=== PATIENT | male | born 1980 | race Caucasian/White ===

== ENCOUNTER 2023-08-26 18:39 | Emergency (ER) | payer OTHER, SELFPAY ==
[2023-08-26 19:18] VITALS: BP 153/92; PULSE 71; RESP 20; TEMP 36.5; O2SAT 96; BMI 36.3
--- NOTE | 2023-08-26 20:17 | ED_ITS ---
HPI - Back Pain/Injury General Time Seen by Provider: 20:17 Date Seen: 08/26/23 Chief Complaint: Back Injury/Pain Stated Complaint: Threw out back Time Seen by Provider: 08/26/23 20:17 Source: patient Mode of arrival: ambulatory Limitations: no limitations History of Present Illness HPI Narrative: Dominick is a very pleasant 43-year-old gentleman with a history of scoliosis long hand standing history of intermittent back pain who comes to the emergency room with acute back pain. Patient notes the last 3 days he has been experiencing soreness in the back and today while lifting a heavy battery he felt a sharp pain. He does have discomfort in the low back but the majority of his pain is in the mid back with radiation over the right flank. Patient states that when this happened he could not stand up straight. States the pain is radiating into his testicles a bit but denies numbness or tingling. Notes that he has in the past had pain radiating down his left leg and notes some discomfort but states that is mostly because he has been leaning to his left. He states sitting is better than lying down and leaning to his left is the best position. Any move ment greatly increases his discomfort. He notes that it seems to be harder to empty his bladder lately. He has also noticed night sweats for about 1 month but has not had any weight loss. He and his significant other recently moved from [facility]. Previous physician was Dr. Hemant Smith. Patient did have previous MRIs but no surgeries in the past for his low back. States for many years he was on medications. He was actually and tramadol for 1 year until 4-5 years ago he decided to quit all of his medications and try to seek janitor caretaker. He was also muscle relaxers at that time. No recent narcotic prescriptions. Has not taken any other medications today Related Data Home Medications Medication Instructions Recorded Confirmed No Known Home Medications 08/26/23 08/26/23 Allergies Allergy/AdvReac Type Severity Reaction Status Date / Time No Known Drug Allergies Allergy Verified 08/26/23 22:08 Review of Systems Status of ROS: Reports: 10 or more systems reviewed and unremarkable except as noted in History and below Const: Reports: night sweats; Denies: fever, chills or change in weight Eyes: Denies: change in vision ENMT: Denies: neck pain Cardio: Denies: chest pain or shortness of breath with exertion Resp: Denies: shortness of breath or cough GI: Denies: abdominal pain or diarrhea : Denies: painful urination Musculo: Reports: back pain; Denies: neck pain or extremity pain Exam Narrative: Exam Narrative: Patient is alert and oriented. Very pleasant gentleman and significant other seems very loving and supportive. External ears eyes nose clear. Heart he is sitting on the cot in exam room 7. He is leaning to his left. His Peter off the floor. Heart with regular rate and rhythm and lungs are clear in all lung cazares. Point tenderness over approximately T7-8 area with tenderness noted on the right as well. Minimal discomfort with palpation over the lumbar area and sacral spine. Lower extremities are with full motor with hip flexion knee extension and flexion ankle and great toe extension flexion. DTRs are 2+ bilaterally. Sensation is fully intact Const: Vital Signs, click to edit/add: Vital Signs - 24 hr 08/26/23 19:18 Temperature 97.7 F Pulse Rate [Right Pulse Oximeter] 71 Respiratory Rate 20 Blood Pressure [Ri ght Upper Arm] 153/92 H Pulse Oximetry 96 Oxygen Delivery Me thod Room Air Documenting provider has reviewed patient's vital signs: yes Course Course ED Course: Differential diagnosis includes but is not limited to musculoskeletal pain, back spasm, compression fracture, disc injury, kidney stone with ureteral colic, other pathological mass. At this time will place IV and give Toradol and Ativan for treatment of discomfort. Will start with chest x-ray and thoracolumbar x- rays but will plan on CT with worries regarding the night sweats that have been occurring for 1 month. Will also check urinalysis, CBC, sed rate, CRP and comprehensive panel. Patient and his significant other agreed with this plan. Reevaluation(s) Reevaluation #1: Patient did not have significant pain relief with Toradol and Ativan. However, he was able to ambulate to and from Radiology and I observe him. He is moving slowly but has full strength. Gave dose of morphine 4 mg and Zofran 4 mg. Reevaluation #2: Patient has reassuring laboratory values as well as CTs. He continues to complain of pain will give Dilaudid 0.25 mg prior to discharge home. Vital Signs Vital signs: Initial Vital Signs Temperature 97.7 F 08/26/23 19:18 Temperature Source Temporal Artery Scan 08/26/23 19:18 Pulse Rate 71 08/26/23 19:18 Pulse Rhythm Regular 08/26/23 19:18 Respiratory Rate 20 08/26/23 19:18 Blood Pressure 153/92 H 08/26/23 19:18 Blood Pressure Mean 112 H 08/26/23 19:18 Blood Pressure Position Sitting 08/26/23 19:18 Pulse Oximetry 96 08/26/23 19:18 Oxygen Delivery Method Room Air 08/26/23 19:18 Vital Signs Temperature 97.7 F 08/26/23 19:18 Pulse Rate 71 08/26/23 19:18 Respiratory Rate 20 08/26/23 19:18 Blood Pressure 153/92 H 08/26/23 19:18 Pulse Oximetry 96 08/26/23 19:18 Oxygen Delivery Method Room Air 08/26/23 19:18 Temperature 97.7 F 08/26/23 19:18 Pulse Rate 71 08/26/23 19:18 Respiratory Rate 20 08/26/23 19:18 Blood Pressure 153/92 H 08/26/23 19:18 Pulse Oximetry 96 08/26/23 19:18 Oxygen Delivery Method Room Air 08/26/23 19:18 Medications Administered Medications: Discontinued Medications Generic Name Dose Route Start Last Admin Trade Name Freq PRN Reason Stop Dose Admin Sodium Chloride 1,000 mls @ 1,000 mls/hr 08/26/23 20:28 08/26/23 22:52 0.9 % Sodium Chloride 1000 Ml IV 08/26/23 21:27 Infused .Q1H SUDHAKAR Infusion Ketorolac Tromethamine 15 mg 08/26/23 20:27 08/26/23 21:14 Ketorolac 15 Mg/Ml Inj IVP 08/26/23 20:28 15 mg ONCE ONE Administration Lorazepam 0.5 mg 08/26/23 20:28 08/26/23 21:14 Lorazepam 2 Mg/Ml Inj IVP 08/26/23 20:29 0.5 mg ONCE ONE Administration Morphine Sulfate 4 mg 08/26/23 21:54 08/26/23 22:08 Morphine 4 Mg/Ml Inj IVP 08/26/23 21:55 4 mg ONCE ONE Administration Ondansetron HCl 4 mg 08/26/23 21:54 08/26/23 22:08 Ondansetron 2 Mg/Ml Inj IVP 08/26/23 21:55 4 mg ONCE ONE Administration MDM - Back Pain/Injury MDM Narrative Medical decision making narrative: 1. Thoracic back pain-patient noted to have no evidence of compression fracture or lesion on CT. Fortunately laboratory values also reassuring. This appears to be musculoskeletal issue with muscular spasm in the thoracic spine. Neuro exam is without any acute focal findings. Recommend icing to this area as well as follow-up with primary MD or establishment with a new physician. This appears to be acute on chronic issue. At this time, check the [employer] confirms patient statement that he is not use pain medications for quite some time. At this time will give him Vicodin 5/325 for nighttime use to help him sleep. Did state that this would likely cause constipation in to ensure that he starts on a stool softener. Also cautioned against right driving or any other recreation that would place him at risk if he was sedated. He does describe spasm and I have also given him of muscle relaxer but I have asked him not to use in conjunction with the [place]. During the day he may use ibuprofen or Tylenol for discomfort. Flexeril 10 mg 1 tab p.o. t.i.d. p.r.n. may be used. Again, this is a sedating medication and he should not drive with this medication. He will need to follow up as previously noted. No evidence of kidney obstruction, unusual intra-abdominal bleed, kidney stone on CT. Did speak to patient about the inability for us to do an MRI tonight but he may need 1 in the future. Also reexamine patient to ensure there is no evidence of lesions indicating a shingles infection. 2. Night sweats-there is no evidence of lesion and labs are reassuring. Follow- up with primary MD. 3. Disposition-home at this time. Prior to discharge Dilaudid 0.25 mg IV is given. Patient is ambulating slowly but without significant difficulty. Return to the emergency room as needed. Did discuss red flag symptoms such as loss of bowel or bladder control numbness of the for perineal area, inability to ambulate or high fever. Patient should return should he experience any of these. Lab Data Attestation: I reviewed the patient's lab results. Labs: Lab Results 08/26/23 08/26/23 Range/Units 20:29 21:05 WBC 6.77 (4.50-11.00) K/uL RBC 5.04 (4.30-5.90) m/uL Hgb 15.7 (13.5-17.5) gm/dL Hct 46.1 (37.0-53.0) % MCV 92 (80-100) fL MCH 31 (26-34) pg MCHC 34 (32-36) gm/dL RDW Coeff of Donn 12.4 (11.5-15.5) % Plt Count 253 (140-440) K/uL Neut % (Auto) 56.9 (42.0-72.0) % Lymph % (Auto) 32.8 (20-44) % [place] % (Auto) 8.7 (0.0-11.0) % Eos % (Auto) 1.0 (0.0-7.0) % Baso % (Auto) 0.6 (0.0-3.0) % Neut # (Auto) 3.85 (1.7-7.0) K/uL Lymph # (Auto) 2.22 (0.90-2.90) K/uL [place] # (Auto) 0.60 (0.00-0.90) K/UL Eos # (Auto) 0.07 (0.00-0.50) K/uL Baso # (Auto) 0.04 (0.00-0.30) K/uL Abs Immat Gran (auto) 0.00 (0.00-0.30) K/uL Imm/Tot Granulo (auto) 0.0 % ESR 6 (2-15) mm/hr Sodium 141 (135-149) mmol/L Potassium 3.8 (3.6-5.1) mmol/L Chloride 106 (96-114) mmol/L Carbon Dioxide 25 (20-32) mmol/L Anion Gap 10 (7-15) mEq/L BUN 12 (5-24) mg/dL Creatinine 0.9 (0.5-1.5) mg/dL Estimated Creat Clear 84.30 Estimated GFR 108 ml/min Glucose 77 (60-115) mg/dL Calcium 9.3 (8.4-10.6) mg/dL Total Bilirubin 0.8 (0.1-1.5) mg/dL AST 34 (12-35) U/L ALT 34 (4-50) U/L Alkaline Phosphatase 61 (40-150) U/L C-Reactive Protein < 0.5 L (0.5-1.0) mg/dL Total Protein 8.5 H (6.0-8.3) g/dL Albumin 5.0 (3.3-5.0) g/dL Urine Color Yellow (Yellow) Urine Appearance Clear (Clear) Urine pH 5.5 (5.0-8.5) Ur Specific [place] <= 1.005 (1.000-1.030) Urine Protein Negative (Negative) Urine Glucose (UA) Negative (Negative) Urine Ketones Negative (Negative) Urine Blood Negative (Negative) Urine Nitrite Negative (Negative) Urine Bilirubin Negative (Negative) Urine Urobilinogen 0.2 (0.2-1.0) Ur Leukocyte Esterase Negative (Negative) Urine RBC 0-2 (0-2) Urine WBC 0-2 (0-5) Ur Squamous Epith Cells None (None-Few) Urine Bacteria None (None) Imaging Data Thoracolumbar x-ray: Attestation: I have reviewed the pertinent imaging results. My impression: Questionable T8 or 9 compression. Radiologist's impression: Hmaf-jl-kuiuvqrq exaggerated thoracic kyphosis. Mild to moderate rightward thoracic curvature. Mild chronic T6-T9 vertebral body anterior wedging. No acute fracture or spondylolisthesis. Mild multilevel facet arthropathy. Prominent anterior osteophytes at T9-10. Dorsal epidural lipomatosis. No high-grade spinal canal stenosis. Low-grade neural foraminal narrowing at multiple levels. No concerning opacities in the visualized lungs. IMPRESSION: 1. No acute fracture. 2. Multilevel thoracic spondylosis without high-grade spinal canal or neural foraminal stenosis. 3. Afvo-ok-xffijhvxfs exaggerated thoracic kyphosis and pows-rk-tjeomxbc rightward thoracic curvature. Chest x-ray: Attestation: I have reviewed the pertinent imaging results. My impression: No acute finding Radiologist's impression: Cardiovascular and mediastinum: Heart size and vasculature are normal in caliber and appearance. Lungs and pleural spaces: Lungs are clear. No sign of infiltrate or mass. No sign of pleural effusion. No pneumothorax. Bones and soft tissues: No significant findings. IMPRESSION: No acute cardiopulmonary abnormality. Abdominal CT: Attestation: I have reviewed the pertinent imaging results. My impression: I do not note any acute findings Radiologist's impression: Liver: Normal in size and attenuation. Gallbladder and bile ducts: No stones or inflammation. No biliary ductal dilatation. Spleen: Normal in size. Few calcified granulomas. Adrenal glands: Normal in size. No nodules. Pancreas: Unremarkable. No mass or inflammation. Kidneys: Normal in size. No stones or hydronephrosis. GI tract: Normal in caliber. No evidence of obstruction. Normal appendix. Lymph nodes: No lymphadenopathy. Vasculature: Abdominal aorta is normal in caliber. Abdominal wall/Omentum/Peritoneum: Small fat containing umbilical hernia. No free air or significant free fluid. Pelvis: Unremarkable. Bones: Unremarkable for age. IMPRESSION: No acute abdominal or pelvic abnormality on this noncontrast examination. Thoracic CT: Attestation: I have reviewed the pertinent imaging results. Radiologist's impression: Koxl-ib-pdslmqxw exaggerated thoracic kyphosis. Mild to moderate rightward thoracic curvature. Mild chronic T6-T9 vertebral body anterior wedging. No acute fracture or spondylolisthesis. Mild multilevel facet arthropathy. Prominent anterior osteophytes at T9-10. Dorsal epidural lipomatosis. No high-grade spinal canal stenosis. Low-grade neural foraminal narrowing at multiple levels. No concerning opacities in the visualized lungs. IMPRESSION: 1. No acute fracture. 2. Multilevel thoracic spondylosis without high-grade spinal canal or neural foraminal stenosis. 3. Kyuz-ir-elchsnzxki exaggerated thoracic kyphosis and syvr-dy-zbutauam rightward thoracic curvature. Discharge Plan Discharge Clinical Impression: Back pain, thoracic Qualifiers: Chronicity: acute Back pain laterality: right Qualified Code(s): M54.6 - Pain in thoracic spine Patient Disposition: Home, Self-Care Condition: Improved Additional Instructions: Suggest icing of the area of discomfort 3 times daily 20 minutes at a time. Suggest ibuprofen or for daytime pain control. You may use muscle relaxant if needed. At night you may use [place] also known as Vicodin or hydrocodone as needed. Take stool softener if using this medication as it does cause constipation. Both a muscle relaxant and pain medication should not be used if your going to be driving. Both may cause sedation. Do not take them together. Follow-up with your primary MD or establish with another physician here in town. You may need to seek specialty care again. Prescriptions: No Action No Known Home Medications Follow Up/Referrals: Provider,Not a Local [Primary Care Provider] - Stand Alone Forms: LastRoom Info Instructions
--- NOTE | 2023-08-26 20:30 | XR_ITS ---
Patient: NICOL DUFFY Facility:?[facility] Patient ID:?[id number] Site Patient ID:?[id number] Site :?1980 Study:?XRay-Chest 2V-08/26/2023 9:07:50 PM Ordering Physician:LIZ Final Report: INDICATION: Night sweats. TECHNIQUE: Chest 2 views. COMPARISON: None. FINDINGS: Cardiovascular and mediastinum: Heart size and vasculature are normal in caliber and appearance. Lungs and pleural spaces: Lungs are clear. No sign of infiltrate or mass. No sign of pleural effusion. No pneumothorax. Bones and soft tissues: No significant findings. IMPRESSION: No acute cardiopulmonary abnormality. Dictated by Porfirio Henderson MD @ 08/26/2023 9:12:27 PM Signed by:?Porfirio Henderson MD @08/26/2023 9:12:27 PM (Electronic Signature
--- NOTE | 2023-08-26 20:30 | XR_ITS ---
Patient: NICOL DUFFY Facility:?[facility] Patient ID:?[id number] Site Patient ID:?[id number] Site :?1980 Study:?XRay-Spine THORACOLUMAR JUNCTION 2V-08/26/2023 9:08:59 PM Ordering Physician:LIZ Final Report: INDICATION: Back pain. TECHNIQUE: Thoracolumbar spine 2 views. COMPARISON: None. FINDINGS: Bones: Alignment is normal. Vertebral body heights are maintained. No acute displaced fracture. Joints: Disc spaces and facets are unremarkable. Soft tissues: Unremarkable. Dictated by Porfirio Henderson MD @ 08/26/2023 9:13:52 PM Signed by:?Porfirio Henderson MD @08/26/2023 9:13:52 PM (Electronic Signature)
[2023-08-26 20:41] LABS: Appearance Urine Clear (Clear); Bilirubin Urine Negative (Negative); Blood Urine Negative (Negative); Color Urine Yellow (Yellow); Glucose Urine Negative (Negative); Ketones Urine Negative (Negative); Leukocyte Esterase Urine Negative (Negative); Nitrite Urine Negative (Negative); Protein Urine Negative (Negative); Specific Gravity Urine <= 1.005 (1.000-1.030); Urobilinogen Urine 0.2 (0.2-1.0); pH Urine 5.5 (5.0-8.5)
[2023-08-26 20:52] LABS: RBC Urine 0-2 (0-2); WBC Urine 0-2 (0-5)
--- NOTE | 2023-08-26 21:05 | CT_ITS ---
Patient: NICOL DUFFY Facility:?[facility] Patient ID:?[id number] Site Patient ID:?[id number] Site :?1980 Study:?CT-Spine Thoracic WO-08/26/2023 9:37:34 PM Ordering Physician:?Avinash Parker Final Report: INDICATION Flank pain. T7-8 pain. TECHNIQUE: Noncontrast CT images of the thoracic spine. COMPARISON: None. FINDINGS: Emnz-he-fjkjjlca exaggerated thoracic kyphosis. Mild to moderate rightward thoracic curvature. Mild chronic T6-T9 vertebral body anterior wedging. No acute fracture or spondylolisthesis. Mild multilevel facet arthropathy. Prominent anterior osteophytes at T9-10. Dorsal epidural lipomatosis. No high-grade spinal canal stenosis. Low-grade neural foraminal narrowing at multiple levels. No concerning opacities in the visualized lungs. IMPRESSION: 1. No acute fracture. 2. Multilevel thoracic spondylosis without high-grade spinal canal or neural foraminal stenosis. 3. Byrt-xz-xtbgichocm exaggerated thoracic kyphosis and xdtq-ru-wgyfkjfy rightward thoracic curvature. Please note that all CT scans at this facility use dose modulation, iterative reconstruction, and/or weight-based dosing when appropriate to reduce radiation dose to as low as reasonably achievable. Dictated by Yogi Meadows MD @ 08/26/2023 9:51:47 PM Signed by:?Yogi Meadows MD @08/26/2023 9:51:47 PM (Electronic Signature)
--- NOTE | 2023-08-26 21:10 | CT_ITS ---
Patient: NICOL DUFFY Facility:?[facility] Patient ID:?[id number] Site Patient ID:?[id number] Site :?1980 Study:?CT-Abdomen/Pelvis WO-08/26/2023 9:38:44 PM Ordering Physician:?Avinash Parker Final Report: INDICATION: Right flank pain. TECHNIQUE: CT abdomen and pelvis without contrast. COMPARISON: None. FINDINGS: Lower chest: Unremarkable. Liver: Normal in size and attenuation. Gallbladder and bile ducts: No stones or inflammation. No biliary ductal dilatation. Spleen: Normal in size. Few calcified granulomas. Adrenal glands: Normal in size. No nodules. Pancreas: Unremarkable. No mass or inflammation. Kidneys: Normal in size. No stones or hydronephrosis. GI tract: Normal in caliber. No evidence of obstruction. Normal appendix. Lymph nodes: No lymphadenopathy. Vasculature: Abdominal aorta is normal in caliber. Abdominal wall/Omentum/Peritoneum: Small fat containing umbilical hernia. No free air or significant free fluid. Pelvis: Unremarkable. Bones: Unremarkable for age. IMPRESSION: No acute abdominal or pelvic abnormality on this noncontrast examination. Please note that all CT scans at this facility use dose modulation, iterative reconstruction, and/or weight-based dosing when appropriate to reduce radiation dose to as low as reasonably achievable. Dictated by Porfirio Henderson MD @ 08/26/2023 9:57:47 PM Signed by:?Porfirio Henderson MD @08/26/2023 9:57:47 PM (Electronic Signature)
[2023-08-26] MEDS: KETOROLAC 15 MG/ML inj IVP (21:14)
[2023-08-26] MEDS: 0.9 % SODIUM CHLORIDE 1000 ml 1,000 ML IV (21:14)
[2023-08-26] MEDS: LORazepam 2 MG/ML inj 0.5 MG IVP (21:14)
[2023-08-26 21:30] LABS: Basophils Absolute Auto 0.04 K/uL (0.00-0.30); Basophils Percent Auto 0.6 % (0.0-3.0); Eosinophils Absolute Auto 0.07 K/uL (0.00-0.50); Hematocrit 46.1 % (37.0-53.0); Hemoglobin* 15.7 gm/dL (13.5-17.5); Lymphocytes Absolute Auto 2.22 K/uL (0.90-2.90); Lymphocytes Percent Auto 32.8 % (20-44); Mean Corpuscular HGB Conc 34 gm/dL (32-36); Mean Corpuscular Hemoglobin 31 pg (26-34); Mean Corpuscular Volume 92 fL (80-100); Monocytes Percent Auto 8.7 % (0.0-11.0); Neutrophils Absolute Auto 3.85 K/uL (1.7-7.0); Neutrophils Percent Auto 56.9 % (42.0-72.0); Platelet Count* 253 K/uL (140-440); RDW Coefficient of Variation % 12.4 % (11.5-15.5); Red Blood Count 5.04 m/uL (4.30-5.90); White Blood Count* 6.77 K/uL (4.50-11.00)
[2023-08-26 21:41] LABS: Slide Review Reflex No
[2023-08-26 21:42] LABS: Chloride* 106 mmol/L (96-114)
[2023-08-26 21:43] LABS: Potassium* 3.8 mmol/L (3.6-5.1); Sodium* 141 mmol/L (135-149)
[2023-08-26 21:46] LABS: Alanine Aminotransferase* 34 U/L (4-50); Alkaline Phosphatase* 61 U/L (40-150); Anion Gap 10 mEq/L (7-15); Aspartate Amino Transferase* 34 U/L (12-35); Bilirubin Total* 0.8 mg/dL (0.1-1.5); Carbon Dioxide* 25 mmol/L (20-32); Creatinine* 0.9 mg/dL (0.5-1.5); Estimated Glomerular Filt Rate 108 ml/min; Total Protein* 8.5 g/dL (6.0-8.3)
[2023-08-26 21:47] LABS: Blood Urea Nitrogen* 12 mg/dL (5-24); Calcium* 9.3 mg/dL (8.4-10.6); Glucose* 77 mg/dL (60-115)
[2023-08-26 21:50] LABS: C Reactive Protein* < 0.5 mg/dL (0.5-1.0)
[2023-08-26] MEDS: MORPHINE 4 MG/ML INJ IVP (22:08)
[2023-08-26] MEDS: ONDANSETRON 2 MG/ML inj 4 MG IVP (22:08)
[2023-08-26 22:38] LABS: Erythrocyte SedimentationRate* 6 mm/hr (2-15)
[2023-08-26] MEDS: HYDROmorphone 0.5 mg/0.5 ml inj 0.25 MG IVP (22:45)
== END 2023-08-26 23:20 | disposition home or self-care (01) ==
PROVIDERS: Emergency Provider Family Medicine
DX: M54.6 Pain in thoracic spine (principal)
CPT/HCPCS: 36415; 71046; 72080; 72128; 74176; 80053; 81001; 85025; 85651; 86140; 96374; 96375; 99284; 99285; J1170; J1885; J2060; J2270; J2405; J7030

== ENCOUNTER 2025-01-19 04:35 | Emergency (ER) | payer BC, SELFPAY ==
--- OUTSIDE RECORDS SUMMARY | 2025-01-19 04:37 | XMS_ITS | Clinical Summary ---
Author Organization [facility] Address [address] [place] [id number] Care Team Providers Care Communications Equipment Installer Name Role Phone Bird Parker MD Primary Care Provider [phone] Sarah Us Unavailable Dianne Knutson MD Unavailable [phone] Henok Ames MD Unavailable [phone] Allergies Active Allergy Reactions Criticality Noted Date Comments No Known Allergies 09/10/2020 No Known Drug Allergy 02/25/2003 Immunizations Immunization Administration Dates Next Due Historical DTP/aP 12/14/1982,03/27/1980,11/06/18 80,1979 MMR (MMRII) 10/23/1991,12/04/1980 OPV, trivalent, live 12/14/1982,03/27/1980,11/06,1979 Social History Tobacco Use Types Packs/Day Years Used Date Smoking Tobacco: Former Smokeless Tobacco: Never Alcohol Use Standard Drinks/Week Comments Yes 0 (1 standard drink = 0.6 oz pur e alcohol) PHQ-2 Answer Date Recorded PHQ-2 Score 0 09/10/2020 Adolescent Education Answer Date Record ed Getting School Help Needed Not on file 01/30 Sex and Gender Information Value Date Recorded Sex Assigned at Not on file Legal Sex Male 3:13 AM HANDER IN Gender Identity Not on file Sexual Orientation Not on file Last Filed Vital Signs Vital Sign Reading Time Taken Comments Blood Pressure 118/84 02/25/2003 10:10 AM HANDER IN Pulse 62 02/25/2003 10:10 AM HANDER IN Temperature - - Respiratory Rate - - Oxygen Saturation - - Inhaled Oxygen Concentration - - Weight 73.5 kg (162 lb) 02/25/2003 10:10 AM HANDER IN Height 180.3 cm (5' 11) 02/25/2003 10:10 AM HANDER IN Body Mass Index 22.59 02/25/2003 10:10 AM HANDER IN Plan of Treatment Not on file Care Teams Communications Equipment Installer Relationship Specialty Start Date End Date Bird Parker MD [address] [place] [address] PCP - General 02/20/00 Sarah Us [address] [place] [address] [place] [address] Referring Physician Nurse Practitioner 08/25/20 Dianne Knutson MD [address] [place] [address] [place] [address] Ophthalmology 08/26/20 Henok Ames MD [address] [place] [address] Referring Physician Neurological Surgery 09/11/20
--- OUTSIDE RECORDS SUMMARY | 2025-01-19 04:37 | XMS_ITS | Clinical Summary ---
Author Organization [employer] [facility] Address [address] [place] [id number] Care Team Providers Care Booking Police Officer Name Role Phone Susan Marcos MD Primary Care Provide r Nithin Mendoza MD Unavailable Allergies No known active allergies Medications trimethoprim-polymy luis b (POLYTRIM) ophthalmic solutionIndications :Acute bacterial conjunctivitis of both eyes Place 1 Drop into both eyes every 4 hours. 10 mL 3 Active Active Problems Problem Noted Date Diagnosed Date Contact dermatitis and other eczema, due to unspecified cause 11/30/2011 Allergic rhinitis, cause unspecified 11/30/2011 Immunizations Immunization Administration Dates Next Due MMR 10/23/1991,12/04/1980 Td (Age >=7 Years) 07/29/1994 Tdap 06/21/2015 Family History Medical History Relation Name Comments Heart Disease Maternal Grandfather Stroke Paternal Grandfather Relation Name Status Comments Brother 1 Alive Brother 2 Alive Maternal Grandfather Maternal Grandmother Paternal Grandfather Paternal Grandmother Alive Son Alive Social History Tobacco Use Types Packs/Day Years Used Date Smoking Tobacco: Never Smokeless Tobacco: Former Quit: 2016 Tobacco Cessation:Counseling Given: Not Answered Alcohol Use Standard Drinks/Week Comments Yes 0 (1 standard drink = 0.6 oz pur e alcohol) occasional PHQ-2 Answer Date Recorded PHQ-2 TOTAL SCORE 0 03/30/2022 Financial Resource Strain Answer Date R ecorded Difficulty of Paying Living Expenses Not on file 04/25/2021 Difficulty of Paying Living Expenses Not on file 04/25/2021 Sex and Gender Information Value Date Recorded Sex Assigned at Not on file Legal Sex Male 7:09 AM [employer] Gender Identity Not on file Sexual Orientation Not on file Occupation Industry Job Start Date Job End Date [employer] Not on file Not on file Not on file Obstetrics History Last Filed Vital Signs Vital Sign Reading Time Taken Comments Blood Pressure 134/72 07/27/2022 8:37 AM CDT Pulse 93 07/27/2022 8:37 AM CDT Temperature 36.8 C (98.2 F) 07/27/2022 8:37 AM CDT Respiratory Rate 16 07/15/2020 8:01 AM CDT Oxygen Saturation 96% 07/27/2022 8:37 AM CDT Inhaled Oxygen Concentration - - Weight 100.3 kg (221 lb 1.6 oz) 07/27/2022 8:37 AM CDT Height 179 cm (5' 10.47) 07/27/2022 8:37 AM CDT Body Mass Index 31.3 07/27/2022 8:37 AM CDT Plan of Treatment Health Maintenance Due Date Last Done Comments HIV for age 15-65 07/06/1994 Hepatitis C screening for age 18-79 07/06/1997 Hepatitis B series for 19+ (1 of 3 - 19+ 3-dose series) 07/06/1998 HPV series for age 9-45 (1 - 3-dose SCDM series) 07/06/2006 Depression screening for age 12+ 03/30/2023 03/30/2022, 07/15/2020, 07/15/2020, Additional history exists BMI (ht and wt on same day) for age 18+ 07/28/2023 07/27/2022, 05/21/2022, 03/30/2022, Additional history exists Colonoscopy through age 75 07/06/2024 COVID-19 vaccine series (2023- season) 2024 Influenza Vaccine (#1) 2024 Tetanus booster 06/21/2025 06/21/2015, 07/29/1994 Lipids for age 45-75 07/15/2025 07/15/2020 RSV vaccine for adults or (1 - 1-dose 75+ series) 07/06/2054 Pneumococcal series for age 6-49 Aged Out No longer eligible based on patient's age to complete this topic Procedures Procedure Name Priority Date/Time Associated Diagnosis Comments LIPID PANEL Routine 07/15/2020 8:59 AM CDT Screening for lipid disorders from Last 3 Months or Most Recently Relevant to Health Maintenance Results * (ABNORMAL) LIPID PANEL (07/15/2020 8:59 AM CDT) CHOLESTEROL,TOTAL 204(H) 100 - 199 mg/dL 07/15/2020 3:30 PM CDT [facility] TRIGLYCERIDES 64 <150 mg/dL 07/15/2020 3:30 PM CDT [facility] HDL CHOLESTEROL 43 >40 mg/dL 3:30 PM CDT [facility] NON-HDL CHOLESTEROL 161(H) <145 mg/dl 07/15/2020 3:30 PM CDT [facility] CHOL/HDL RATIO 4.74(H) <4.50 07/15/2020 3:30 PM CDT [facility] LDL CHOLESTEROL 148(H) <=130 mg/dL 07/15/2020 3:30 PM CDT [facility] PROVIDER ORDERED STATUS RANDOM 07/15/2020 3:30 PM CDT [facility] Blood BLOOD SPECIMEN / Unknown Venipuncture / Unknown 07/15/2020 8:59 AM CDT 07/15/2020 9:00 AM CDT us Susan Marcos MD CHEMISTRY Final Result [facility] [address] [place] [address], [place] from Last 3 Months or Most Recently Relevant to Health Maintenance Insurance [employer] Care Teams Booking Police Officer Relationship Specialty Start Date End Date Susan Marcos MD [address] [place] [address] PCP - General Family Practice 04/15/12 Nithin Mendoza MD [address] [facility] [address] [place] [address] Rheumatology Rheumatology 11/29/12
[2025-01-19 04:43] VITALS: BP 146/88; PULSE 96; RESP 18; TEMP 36.6; O2SAT 97; BMI 26.5
--- NOTE | 2025-01-19 04:45 | CRLHL7_ITS ---
For Patients: As a result of the Century Cures Act, medical imaging exams and procedure reports are released immediately into your electronic medical record. You may view this report before your referring provider. If you have questions, please contact your health care provider. Indication: Injury Technique: A total of three views of the left foot were acquired. Comparison: None Findings: Bones: Alignment is normal. No fractures or bone lesions. Postsurgical changes the forefoot on the medial side. Joint spaces: Unremarkable. Soft tissues: Unremarkable. Impression: No acute fracture, dislocation or destructive process. Dictated by Manan Barfield MD @ 01/19/2025 5:13:30 AM (Electronically Signed)
--- NOTE | 2025-01-19 05:49 | ED.LOWEXIN ---
HPI - Extremity Injury (Lower) General Time Seen by Provider: 05:50 Date Seen: 01/19/25 Chief Complaint: Extremity Pain/Injury, Lower Stated Complaint: Left foot injury Time Seen by Provider: 01/19/25 05:49 Source: patient Mode of arrival: ambulatory History of Present Illness HPI Narrative: Dominick is a 44-year-old male who presents the emergency department for evaluation of foot pain. Patient reports history of 5th metatarsal fracture in 2007 with surgical repair/plate. Patient reports that last night he tripped while walking, struck the ground with his toes pointed down. Now complains of pain and swelling from his mid foot through the 1st 4 toes. Patient last took ibuprofen around 2100 last night. Denies any other injuries or complaints, no tingling, numbness. Related Data Home Medications ?Medication ?Instructions ?Recorded ?Confirmed No Known Home Medications 08/26/23 01/19/25 Allergies Allergy/AdvReac Type Severity Reaction Status Date / Time No Known Drug Allergies Allergy Verified 01/19/25 04:42 Review of Systems Narrative: Past medical history, past surgical history, medications, allergies, family history, and social history were reviewed with the patient. No additional pertinent items. A medically appropriate review of systems was performed with pertinent positives and negatives noted in HPI, all other systems negative. Exam Narrative: Exam Narrative: General: Afebrile, no acute distress HEENT: Normocephalic, atraumatic, conjunctiva normal. MMM Neck: non-tender, supple Cardio: regular rate. regular rhythm Resp: Normal work of breathing, no respiratory distress, lungs clear bilaterally, no wheezing, rhonchi, rales Chest/Back: no visual signs of trauma, no midline tenderness, no CVA tenderness Abdomen: soft, non distension, no tenderness, no peritoneal signs Neuro: alert and fully oriented. CN II-XII grossly intact. Grossly normal strength and sensation in all extremities. MSK: +left great toe with mild erythema, swelling, diffuse TTP great toe, midfoot, decrease ROM 2/2 to pain Integumentary/Skin: no rash visualized, normal color Psych: normal affect, normal behavior Const: Vital Signs, click to edit/add: Vital Signs - 24 hr 01/19/25 04:43 Temperature 97.8 F Pulse Rate [Pulse Oximeter] 96 Respiratory Rate 18 Blood Pressure [Ri ght Upper Arm] 146/88 H Pulse Oximetry 97 Oxygen Delivery Me thod Room Air Course Vital Signs Vital signs: Initial Vital Signs Temperature 97.8 F 01/19/25 04:43 Temperature Source Temporal Artery Scan 01/19/25 04:43 Pulse Rate 96 01/19/25 04:43 Respiratory Rate 18 01/19/25 04:43 Blood Pressure 146/88 H 01/19/25 04:43 Blood Pressure Mean 107 H 01/19/25 04:43 Blood Pressure Position Sitting 01/19/25 04:43 Pulse Oximetry 97 01/19/25 04:43 Oxygen Delivery Method Room Air 01/19/25 04:43 Vital Signs Temperature 97.8 F 01/19/25 04:43 Pulse Rate 96 01/19/25 04:43 Respiratory Rate 18 01/19/25 04:43 Blood Pressure 146/88 H 01/19/25 04:43 Pulse Oximetry 97 01/19/25 04:43 Oxygen Delivery Method Room Air 01/19/25 04:43 Temperature 97.8 F 01/19/25 04:43 Pulse Rate 96 01/19/25 04:43 Respiratory Rate 18 01/19/25 04:43 Blood Pressure 146/88 H 01/19/25 04:43 Pulse Oximetry 97 01/19/25 04:43 Oxygen Delivery Method Room Air 01/19/25 04:43 MDM - Extremity Injury (Lower) MDM Narrative Medical decision making narrative: Dominick is a 44-year-old male who presents the emergency department for evaluation of foot pain. Upon arrival patient is nontoxic appearing, afebrile, in distress secondary to pain. Differential diagnosis includes but is not limited to contusion versus hematoma versus fracture versus dislocation versus sprain among others. I personally reviewed interpreted x-ray of the foot which demonstrates no acute fracture or dislocation. I discussed results with patient. Patient treated with oxycodone for pain, took ibuprofen prior to arrival. At this time plan for discharge with continued supportive care, recommend close outpatient follow-up with no improvement of his symptoms in the next 7-10 days for repeat imaging. Return precautions discussed. Patient understands and agrees the plan. Medical Records Attestation: I reviewed the patient's medical records. Imaging Data xray foot: Radiologist's impression: Findings: Bones: Alignment is normal. No fractures or bone lesions. Postsurgical changes the forefoot on the medial side. Joint spaces: Unremarkable. Soft tissues: Unremarkable. Impression: No acute fracture, dislocation or destructive process. Discharge Plan Discharge Clinical Impression: Acute pain of left foot Patient Disposition: Home, Self-Care Condition: Stable Additional Instructions: Please follow-up with your primary care provider in the next 7-10 days if no improvement of your symptoms. Please ice, elevate, weightbear as tolerated. Please alternate taking Tylenol 1000 mg and ibuprofen 600 mg every 6 hours as needed for pain. Return to the emergency department if any worsening symptoms. A pleasure taking care of you today. We hope you feel better soon. Prescriptions: No Action No Known Home Medications Follow Up/Referrals: Provider,Not a Local [Primary Care Provider, Family Practice] Stand Alone Forms: [employer] Info Instructions
== END 2025-01-19 06:26 | disposition home or self-care (01) ==
PROVIDERS: Emergency Provider Emergency Medicine
DX: M79.672 Pain in left foot (principal)
CPT/HCPCS: 73630; 99283; A9270